=== PATIENT | female | born 1935 | race Caucasian/White ===

== ENCOUNTER 2016-11-23 02:57 | Emergency (ER) | payer MEDICARE ==
[~2016-11-23] VITALS: Ht 167.6 cm; Wt 99.0 kg
[~2016-11-23 02:57] MED LIST: ACCU-CHEK FASTCLIX L XX; ACCU-CHEK SMARTVIEW VI; ALLERGY RELIEF180 MG PO; AMANTADINE100 MG PO; CIPROFLOXACN500 MG PO; ENALAPRIL10 MG PO; FLUARIX QUADRIV1 IN1 IM; FLUARIX QUADRIV1 INJ IM; LO-DOSE ASA81 MG PO; MAXZIDE PO; METFORMIN HCL500 M1 PO; OCUVIT1 PO; TENORMIN100 MG PO; TRIAM/HCTZ1 CAP PO; TRIAMT/HCTZ1 TAB PO; VISION FORMULA/LUTEI PO; VITAMIN E400 UNIT PO; ZPAK PO
[2016-11-23] MEDS ORDERED: MAXZIDE-2537.5 MG/TA PO (03:25)
[2016-11-23] MEDS ORDERED: VITAMIN D PO (03:27)
[2016-11-23] MEDS ORDERED: E400400 UNIT PO (03:34)
[2016-11-23] MEDS ORDERED: ULTRAM50 M1 PO (05:03)
[2016-11-23] MEDS ORDERED: ZOFRAN ODT4 MG PO (05:03)
[2016-11-23 05:10] VITALS: BP 156/53
== END 2016-11-23 05:31 | disposition home or self-care (01) ==
LOC: ED 02:57
PROC: 0HQ1XZZ Repair Face Skin, External Approach (ICD-10-PCS; principal; 2016-11-23)
DX: S01.81XA Laceration without foreign body of other part of head, initial encounter (principal); S16.1XXA Strain of muscle, fascia and tendon at neck level, initial encounter; M25.562 Pain in left knee; I10 Essential (primary) hypertension; W01.0XXA Fall on same level from slipping, tripping and stumbling without subsequent striking against object, initial encounter; Y92.009 Unspecified place in unspecified non-institutional (private) residence as the place of occurrence of the external cause